=== PATIENT | male | born 2000 | race Caucasian/White ===

== ENCOUNTER 2024-02-28 02:57 | Emergency (ER) | payer SELFPAY ==
[2024-02-28] VITALS (10 sets, daily range): BP systolic 111–138; BP diastolic 64–94; PULSE 75–95; BMI 24.7
[2024-02-28 03:10] LABS: % Basophils 0.5 % (0-2); % Eosinophils 1.1 % (0-6); % Immature Granulocytes 0.2 % (0-0.5); % Monocytes 7.6 % (1.7-9.3); % Neutrophils 37.6 % (42.2-75.2); Absolute Eosinophils 0.1 10^3/uL (0-0.7); Absolute Lymphocytes 4.4 10^3/uL (1.2-3.4); Absolute Monocytes 0.6 10^3/uL (0.1-0.6); Absolute Neutrophils 3.1 10^3/uL (1.4-6.5); Hemoglobin 12.5 g/dL (13.0-18.0); Mean Corp Hgb Conc. 34.7 g/dL (33.0-37.0); Mean Corpuscular Volume 84.5 fL (80.0-94.0); Mean Platelet Volume 9.6 fL (7.4-10.4); Nucleated Red Blood Cells % 0 % (-); Platelet Count 207 10^3/uL (130-400); Red Blood Cell Count 4.26 10^6/uL (4.70-6.10); Red Cell Dist. Width 13.2 % (11.5-14.5); White Blood Cell Count 8.2 10^3/uL (4.8-10.8)
[2024-02-28] MEDS: ZOFRAN 4 MG IV (03:11)
[2024-02-28] MEDS: LR 1000 IV (03:11)
[2024-02-28 03:15] LABS: Mean Corpuscular Hgb 29.3 pg (27.0-31.0)
[2024-02-28 03:26] LABS: ALT (SGPT) 17 U/L (0-50); AST (SGOT) 28 U/L (17-59); Albumin 4.9 g/dl (3.5-5.0); Alkaline Phosphatase 58 U/L (38-126); Blood Urea Nitrogen 23 mg/dl (9-20); Carbon Dioxide 24 mmol/L (22-30); Chloride 109 mmol/L (98-107); Estimated Creatinine Clearance 98 ml/min; Glucose 132 mg/dl (70-99); Potassium 3.9 mmol/L (3.5-5.1); Sodium 144 mmol/L (135-145); Total Bilirubin 0.2 mg/dl (0.2-1.3); Total Protein 7.1 g/dl (6.3-8.2); eGFR > 60.00
--- NOTE | 2024-02-28 03:26 | ED.GENMED ---
Addendum entered and electronically signed by Agnes Mei DO 02/29/24 01:34:
Procedure note: laceration repair:
Right upper arm with multiple lacerations, total length 6 cm, all deep dermal in depth, mildly gapped wound edges. No active bleeding. No foreign body identified. all irrigated extensively and cleansed with betadine.
Local anesthesia with 1% lidocaine with epi, Bicarb added. a total of 8 sutures, 4-0 prolene simple interrupted sutures.
Right temporal scalp 2 cm laceration, subcutaneous in depth. No active bleeding after initial pressure dressing upon arrival. No foreign body. NSS irrigation. Cleansed with betadine. Local anesthesia 1%lido with epi, bicarb added.
Repaired with 3 soniya.
Right lateral flank/lateral chest wall: 4 cm linear laceration, dermal depth with mild gapped wound edges. no active bleeding. no foreign body. Irrigated with NSS. Cleansed with betadine. Anesthetized with 1% lido with epi, bicarb added. #5 4.0
prolene sutures, simple interrupted.
Original Note:
History of Present Illness
General
Chief Complaint: Skin Surface Trauma
Source: patient and family (Mother at bedside)
Exam Limitations: none
Time Seen by Provider: 02/28/24 02:57
Nursing documentation reviewed up to this point in time: agreed with
History of Present Illness
History of Present Illness:
This is a 23-year-old male who has no significant past medical history. Admits to drinking alcohol tonight and inadvertently tripped and fell through a glass door sustaining laceration to his right parietal scalp, right upper arm as well as right
lateral flank region. He is brought to the ED by private vehicle with significant active bleeding from scalp wound.
Immediately brought back to examining room and pressure applied to right parietal scalp wound which is currently controlling the bleeding.
Patient did suffer a brief syncope while sitting upright in wheelchair. He was quickly transferred from wheelchair to exam stretcher where he promptly regained consciousness and has since remained awake alert and oriented x 3.
He mitts to mild right-sided headache. He denies neck nor back pain. No chest pain or abdominal pain.
He complains of nausea with intermittent retching.
Up-to-date with Tdap having received this February 2020.
He takes no medicines on a daily basis.
Phy Exam
Physical Exam
Physical Exam:
TRAUMA EXAM:
23-year-old gentleman appears his stated age, focal pressure on right temporal scalp laceration by nursing staff. Brief syncopal episode resolved after promptly transitioning from wheelchair to stretcher.
He remains awake and alert,
EYES: Pupils reactive, no orbital trauma
NOSE: No deformity or epistaxis
FACE AND SCALP: There is a 2 cm laceration right temporal scalp with brisk bleeding initially has since subsided after local pressure applied. Laceration is full-thickness in depth. No foreign body identified.
NECK: Supple nontender
BACK: Back nontender, pelvis stable to compression
RESPIRATORY: No distress, breath sounds normal, no tender chest wall. There is a superficial 4 cm laceration right lateral flank mildly gapped. No active bleeding.
CARDIAC: No murmur, pulses equal and strong
ABDOMEN: Soft nontender bowel sounds normal
SKIN: Skin warm and dry, mildly pale in color. Multiple superficial lacerations right upper arm, anteromedial aspect. No active bleeding. These lacerations are superficial but mildly gapped. No foreign body. No palpable bony tenderness.
EXTREMITIES: Nontender, full range of motion.
NEUROLOGICAL: Alert, oriented, no motor deficits
PSYCH: Mood affect normal
Course
Orders/Labs/Results
Orders:
Orders
02/28/24 03:04
Type+Screen Urgent
Complete Blood Count/With Diff Urgent
Comprehensive Metabolic Panel Urgent
02/28/24 03:05
CT Head W/o Iv Contrast Urgent
Comment:
Reason For Exam: injury
02/28/24 03:08
Ondansetron Injectable [Zofran] 4 mg .ROUTE .[facility]
02/28/24 03:09
Lactated Ringers [Lr] 1,000 ml IV BOLUS
Ondansetron Injectable [Zofran] 4 mg IV NOW STA
02/28/24 03:33
Lidocaine/Epinephrine/Tetracai [Let Topical Anesthetic Gel] 3 ml .ROUTE .[facility]-MED ONE
02/28/24 07:01
Cephalexin Monohydrate [Keflex] 500 mg PO NOW STA
Ibuprofen [Motrin] 600 mg PO NOW STA
02/28/24 07:03
Orthostatic VS- Treatment ONCE
Abnormal Lab Results
02/28/24
03:04
RBC 4.26 L 10^6/uL
(4.70-6.10)
Hgb 12.5 L g/dL
(13.0-18.0)
Hct 36.0 L %
(39.0-52.0)
Absolute Lymphs (auto) 4.4 H 10^3/uL
(1.2-3.4)
Neutrophils % 37.6 L %
(42.2-75.2)
Lymphocytes % 53.0 H %
(20.5-51.1)
Chloride 109 H mmol/L
(98-107)
BUN 23 H mg/dl
(9-20)
Glucose 132 H mg/dl
(70-99)
02/28/24 03:04
02/28/24 03:04
Vital Signs
Initial and Last Documented VS:
Initial Vital Signs
Temp Resp BP Pulse Ox
98.1 F 18 128/94 98
02/28/24 03:14 02/28/24 03:14 02/28/24 03:14 02/28/24 03:14
Last Documented Vital Signs
Temp Pulse Resp BP Pulse Ox
98.1 F 72 19 111/64 98
02/28/24 03:14 02/28/24 05:45 02/28/24 05:45 02/28/24 05:00 02/28/24 04:45
MDM/Problems Addressed
Differential Diagnosis Includes:
Inadvertent trip and fall striking a glass door suffering multiple superficial lacerations to right upper arm, superficial laceration right lateral chest wall and a laceration to the right temporal scalp with moderate brisk bleeding initially which
has promptly stopped with local pressure.
Brief syncopal episode I suspect is Acute blood loss in nature
IV LR initiated. Will check labs. Will check CT of the head.
Will plan for suture and staple repair of wounds.
*Radiology
Radiology exam reviewed: radiology read reviewed (CT of the head shows no acute findings)
*Pulse Oximetry
Patient hypoxic: no
*Linen Keeper Interpretation
Rate: normal
Interpretation: normal
Rhythm: sinus
*Critical Care Note
Total Time (30-74mins, 75-104mins- exclusive of procedures): Not Applicable
Update Note
Update Note:
Lacerations repaired via suture and staple.
CT of the head is unremarkable.
Labs show a very mild anemia hemoglobin of 12.5. He remains hemodynamically stable.
Will check orthostatic vital signs prior to discharge.
Will initiate a course of Keflex for infection prevention.
Prompt follow-up with PCP for recheck and suture/staple removal
ED Attending Note
-
Portions of this chart may have been created with voice recognition software.� Occasional wrong word or��sound alike� substitutions may have occurred due to the inherent limitations of voice recognition software.
Discharge Plan
Departure
Patient Disposition: Home (Routine Discharge)
Date of Disposition: 02/28/24
Time of Disposition: 07:17
Patient with high blood pressure during this ER visit?: No
Condition: Good
Discharge Problem:
right scalp laceration, Laceration of arm, right, multiple sites, Acute blood loss anemia
Instructions: Laceration Repair With Glue (DC), Laceration Repair With [place] (DC), Laceration Repair With Stitches (DC)
Prescriptions:
New
cephalexin 500 mg capsule
1,000 mg PO BID 6 Days Qty: 24 0RF
No Action
epinephrine 0.3 MG/0.3 ML auto-injector
0.3 mg IJ PRN PRN (Reason: difficulty breathing) Qty: 1 0RF
diphenhydramine HCl [Banophen] 25 MG capsule
25 mg PO Q4HPRN PRN (Reason: rash, itching) Qty: 10 0RF
prednisone 50 MG tablet
50 mg PO DAILY Qty: 5 0RF
Referrals:
Dalton Alejo MD [Family Provider] - Follow up in 5-7 days
Interventions
Interventions:
*Risk Screen - Suicide Last Done: 02/28/24 04:03
*General Assessment Last Done: 02/28/24 04:03
ED- Fall Risk Assessment Last Done: 02/28/24 03:56
ED-Skin Assessment Last Done: 02/28/24 03:10
Discharge Date and Time
Print Language: IRISH
--- NOTE | 2024-02-28 06:59 | ED.GENMED ---
History of Present Illness
General
Chief Complaint: Skin Surface Trauma
Time Seen by Provider: 02/28/24 02:57
Course
Orders/Labs/Results
Orders:
Orders
02/28/24 03:04
Type+Screen Urgent
Complete Blood Count/With Diff Urgent
Comprehensive Metabolic Panel Urgent
02/28/24 03:05
CT Head W/o Iv Contrast Urgent
Comment:
Reason For Exam: injury
02/28/24 03:08
Ondansetron Injectable [Zofran] 4 mg .ROUTE .[facility]-MED ONE
02/28/24 03:09
Lactated Ringers [Lr] 1,000 ml IV BOLUS
Ondansetron Injectable [Zofran] 4 mg IV NOW STA
02/28/24 03:33
Lidocaine/Epinephrine/Tetracai [Let Topical Anesthetic Gel] 3 ml .ROUTE .[facility]-MED [facility]
02/28/24 07:01
Cephalexin Monohydrate [Keflex] 500 mg PO NOW STA
Ibuprofen [Motrin] 600 mg PO NOW STA
02/28/24 07:03
Orthostatic VS- Treatment ONCE
Abnormal Lab Results
02/28/24
03:04
RBC 4.26 L 10^6/uL
(4.70-6.10)
Hgb 12.5 L g/dL
(13.0-18.0)
Hct 36.0 L %
(39.0-52.0)
Absolute Lymphs (auto) 4.4 H 10^3/uL
(1.2-3.4)
Neutrophils % 37.6 L %
(42.2-75.2)
Lymphocytes % 53.0 H %
(20.5-51.1)
Chloride 109 H mmol/L
(98-107)
BUN 23 H mg/dl
(9-20)
Glucose 132 H mg/dl
(70-99)
02/28/24 03:04
02/28/24 03:04
Vital Signs
Initial and Last Documented VS:
Initial Vital Signs
Temp Resp BP Pulse Ox
98.1 F 18 128/94 98
02/28/24 03:14 02/28/24 03:14 02/28/24 03:14 02/28/24 03:14
Last Documented Vital Signs
Temp Pulse Resp BP Pulse Ox
98.1 F 100 22 138/86 98
02/28/24 03:14 02/28/24 08:06 02/28/24 08:06 02/28/24 08:06 02/28/24 08:06
Procedures
Laceration Closure
Right Upper Arm:
Status of Wound: clean
Size of Wound in cm: 6
Description of Wound Edges: ragged and surrounded by abrasion
Preparation: cleaned with soap & water and cleaned with Betadine
Anesthesia: 1% Lidocaine with epi and added Na Bicarb to local
Type of Closure: single layer closure and Dermabond-skin glue
Skin Closure Material: 4-0 vicryl
Number of sutures: 8
right flank:
Status of Wound: clean
Size of Wound in cm: 4
Description of Wound Edges: ragged and surrounded by abrasion
Preparation: cleaned with soap & water and cleaned with Betadine
Anesthesia: 1% Lidocaine with epi and added Na Bicarb to local
Type of Closure: single layer closure
Skin Closure Material: 4-0 vicryl
Number of sutures: 5
Right [place]:
Status of Wound: clean
Size of Wound in cm: 2
Description of Wound Edges: sharp
Preparation: cleaned with soap & water and cleaned with Betadine
Anesthesia: 1% Lidocaine with epi and added Na Bicarb to local
Type of Closure: single layer closure
Skin Closure Material: 4-0 vicryl
Number of sutures: 3
ED Attending Note
-
Portions of this chart may have been created with voice recognition software.� Occasional wrong word or��sound alike� substitutions may have occurred due to the inherent limitations of voice recognition software.
Discharge Plan
Departure
Patient Disposition: Home (Routine Discharge)
Date of Disposition: 02/28/24
Time of Disposition: 07:17
Patient with high blood pressure during this ER visit?: No
Condition: Good
Discharge Problem:
right scalp laceration, Laceration of arm, right, multiple sites, Acute blood loss anemia
Instructions: Laceration Repair With Glue (DC), Laceration Repair With [place] (DC), Laceration Repair With Stitches (DC)
Prescriptions:
New
cephalexin 500 mg capsule
1,000 mg PO BID 6 Days Qty: 24 0RF
No Action
epinephrine 0.3 MG/0.3 ML auto-injector
0.3 mg IJ PRN PRN (Reason: difficulty breathing) Qty: 1 0RF
diphenhydramine HCl [Banophen] 25 MG capsule
25 mg PO Q4HPRN PRN (Reason: rash, itching) Qty: 10 0RF
prednisone 50 MG tablet
50 mg PO DAILY Qty: 5 0RF
Referrals:
Dalton Alejo MD [Family Provider] - Follow up in 5-7 days
Interventions
Interventions:
*Risk Screen - Suicide Last Done: 02/28/24 04:03
*General Assessment Last Done: 02/28/24 04:03
*Neglect/Abuse Screening Last Done: 02/28/24 08:06
ED- Fall Risk Assessment Last Done: 02/28/24 03:56
*ED COVID-19 Vaccine History Last Done: 02/28/24 08:06
*Nursing Disposition Last Done: 02/28/24 08:06
ED-Skin Assessment Last Done: 02/28/24 03:10
Discharge Date and Time
Discharge Date/Time: 02/28/24 08:08
Print Language: THAI
[2024-02-28] MEDS: MOTRIN 600 MG PO (07:19)
[2024-02-28] MEDS: KEFLEX 500 MG PO (07:20)
== END 2024-02-28 08:08 | disposition home or self-care (01) ==
LOC: EMR 02:57
PROVIDERS: EMERGENCY PHYSICIAN Emergency Medicine; FAMILY PHYSICIAN Internal Medicine
DX: S01.01XA Laceration without foreign body of scalp, initial encounter (principal); S41.111A Laceration without foreign body of right upper arm, initial encounter; W01.198A Fall on same level from slipping, tripping and stumbling with subsequent striking against other object, initial encounter; D62 Acute posthemorrhagic anemia
CPT/HCPCS: 99284; 96374; 12002; 70450; 80053; 85025; 86850; 86900; 86901

== ENCOUNTER 2024-03-18 05:57 | Emergency (ER) | payer OTHER, BC, SELFPAY ==
[2024-03-18 05:58] VITALS: BP 150/86
--- NOTE | 2024-03-18 06:07 | ED.GENMED ---
History of Present Illness
General
Chief Complaint: Skin Surface Trauma
Time Seen by Provider: 03/18/24 06:07
History of Present Illness
History of Present Illness:
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 He reports a rather significant mount of bleeding. Of note he also reports a cystic lesion persisting since soniya
placed to the right side of the scalp from a couple of weeks ago.
EXAM:
GENERAL: Well appearing in no distress
HEENT: Moist oral mucosa
NEUROLOGIC: Excellent strength all extremities, no coordination deficits
PSYCHIATRIC: Appropriate mental status, normal insight and judgement
EXTREMITIES: There is an irregular 3 cm laceration to the volar aspect of the IP joint of the left thumb, no bony tenderness
SKIN: As above
TIME OF INITIAL ENCOUNTER: 6:10 AM
NUMBER AND COMPLEXITY OF PROBLEMS ADDRESSED AT THE ENCOUNTER
� Chronic conditions affecting care: Patient is otherwise healthy, no diabetes
� Acute Exacerbation and/or Progression of Chronic Illness: This is an acute problem
� Differential Diagnosis includes: Thumb laceration
AMOUNT AND/OR COMPLEXITY OF DATA TO BE REVIEWED AND ANALYZED
� I performed an independent evaluation of and my interpretation is:
EKG:
CT:
X-rays:
Laboratory Studies:
Other:
� Review of other/old records: The patient was seen here 02/28/2024 and required repair of lacerations
� Clinical information was obtained by an independent historian: None needed
� Prescriptions/Medications Considered but not given:
� Further testing considered but not performed: No clear indication for x-ray at this time as he has no bony tenderness and no concern for foreign body
RISK OF COMPLICATIONS AND/OR MORBIDITY OR MORTALITY OF PATIENT MANAGEMENT
� Social determinants of health affecting care: Lives at home, this is a work-related injury
� Discussion with other providers:
� Escalation of care including admission/observation vs risk of discharge considered: The patient's wound was and ChloraPrep was also used and then closed. See note. I also attempted to use an 18-gauge needle and 1 attempt to
aspirate right scalp cystic lesion however there was only blood return without any serous or purulent drainage.
Phy Exam
Physical Exam
Physical Exam:
See HPI
Course
Vital Signs
Initial and Last Documented VS:
Initial Vital Signs
Temp Pulse Resp BP Pulse Ox
98.2 F 85 18 150/86 99
03/18/24 05:58 03/18/24 05:58 03/18/24 05:58 03/18/24 05:58 03/18/24 05:58
Last Documented Vital Signs
Temp Pulse Resp BP Pulse Ox
98.2 F 85 18 150/86 99
03/18/24 05:58 03/18/24 05:58 03/18/24 05:58 03/18/24 05:58 03/18/24 05:58
Procedures
Laceration Closure
Left Thumb:
Status of Wound: dirty
Size of Wound in cm: 3
Description of Wound Edges: ragged and surrounded by abrasion
Preparation: cleaned with saline and other (hibiclens)
Anesthesia: 1% Lidocaine
Revision/Debridement: routine- no revision
Wound exploration: extensive cleaning of contaminated wound and explored to base- no FB
Type of Closure: single layer closure
Skin Closure Material: 4-0 nylon
Number of sutures: 5
*Critical Care Note
Total Time (30-74mins, 75-104mins- exclusive of procedures): Not Applicable
ED Attending Note
-
Portions of this chart may have been created with voice recognition software.� Occasional wrong word or��sound alike� substitutions may have occurred due to the inherent limitations of voice recognition software.
Discharge Plan
Departure
Patient Disposition: Home (Routine Discharge)
Date of Disposition: 07/26/24
Time of Disposition: 06:37
Patient with high blood pressure during this ER visit?: Yes
Discharge Problem:
Laceration of thumb
Instructions: Laceration Repair With Stitches (DC), BLOOD PRESSURE
Prescriptions:
No Action
epinephrine 0.3 MG/0.3 ML auto-injector
0.3 mg IJ PRN PRN (Reason: difficulty breathing) Qty: 1 0RF
diphenhydramine HCl [Banophen] 25 MG capsule
25 mg PO Q4HPRN PRN (Reason: rash, itching) Qty: 10 0RF
prednisone 50 MG tablet
50 mg PO DAILY Qty: 5 0RF
cephalexin 500 mg capsule
1,000 mg PO BID 6 Days Qty: 24 0RF
Referrals:
Kush Campo MD [Active] - Follow up in 10 days
Activity Restrictions/Additional Instructions:
Have stitches removed in 10 days by your primary care physician. Return here if worse. Regarding the cystic lesion to the right side of your scalp, I given you the contact information for a general surgeon, Dr. Campo.
Interventions
Interventions:
*Risk Screen - Suicide Last Done: 03/18/24 05:58
*General Assessment Last Done: 03/18/24 05:58
*Neglect/Abuse Screening Last Done: 03/18/24 05:58
ED-Skin Assessment Last Done: 03/18/24 06:49
Discharge Date and Time
Print Language: YORUBA
== END 2024-03-18 06:55 | disposition home or self-care (01) ==
LOC: EMR 05:57
PROVIDERS: EMERGENCY PHYSICIAN Emergency Medicine; FAMILY PHYSICIAN Internal Medicine
DX: S61.012A Laceration without foreign body of left thumb without damage to nail, initial encounter (principal); W22.09XA Striking against other stationary object, initial encounter; L72.9 Follicular cyst of the skin and subcutaneous tissue, unspecified
CPT/HCPCS: 99284; 12042; 10021